=== PATIENT | female | born 1945 | race Caucasian/White ===

== ENCOUNTER 2020-12-10 06:58 | Outpatient (REF) | payer MEDICARE, SELFPAY ==
[2020-12-10 11:37] LABS: Alanine Aminotransferase 12 U/L (0-31); Aspartate Amino Transferase 14 U/L (5-31); Estimated Glomerular Filt Rate > 60
[2020-12-10 11:47] LABS: Valproate 24.6 mcg/mL (50.0-100.0)
[2020-12-10 11:58] LABS: Free T4 (Free Thyroxine) 1.02 ng/dL (0.71-1.85)
== END 2020-12-10 06:59 | disposition home or self-care (01) ==
LOC: HO.HMGCLDS 06:58
PROVIDERS: PCP Family Medicine; Visit Provider Family Medicine
DX: E03.9 Hypothyroidism, unspecified (principal); Z79.899 Other long term (current) drug therapy
CPT/HCPCS: 36415; 80164; 82565; 84439; 84450; 84460

== ENCOUNTER 2022-01-16 14:07 | Emergency (ER) | payer MEDICARE, SELFPAY ==
--- NOTE | ~2022-01-16 | CT_ITS ---
EXAMINATION: CT HEAD WITHOUT CONTRAST CLINICAL INFORMATION: Difficulty ambulating COMPARISON: None TECHNIQUE: Contiguous axial imaging was performed from the skull base to vertex without intravenous administration of contrast. Coronal and sagittal reformatted images are performed at CT scanner This CT examination was performed using dose optimization techniques as appropriate, variously including the following: *Automated exposure control *Adjustment of mA and/or kV according to patient size (this includes techniques or standardized protocols for targeted exams where dose is matched to indication/reason for exam; i.e. extremities or head) *Use of iterative reconstruction technique DLP: 674 mGy-cm FINDINGS: There is no evidence of acute intracranial hemorrhage or territorial infarction. No abnormal mass effect or midline shift is seen. Alvarez to white matter differentiation is well preserved. No extra-axial fluid collections are identified. There is generalized global volume loss. There is moderate prominence of the ventricles and the sulci . There is moderate hypodensity of the periventricular white matter due to chronic small vessel ischemic disease. There are vascular calcifications of the internal carotid arteries bilaterally. The osseous structures and soft tissues are normal. Small retention cyst or polyp at the inferior right maxillary sinus. Mastoid air cells and middle ear cavities are normally aerated. CT/CT head/brain wo con IMPRESSION: No acute intracranial pathology.
--- NOTE | ~2022-01-16 | XR_ITS ---
EXAMINATION: XR CHEST CLINICAL INFORMATION: Shakiness COMPARISON: Chest x-ray 08/15/2019 TECHNIQUE: Frontal portable view of the chest was obtained. 2:40 PM FINDINGS: Lungs are clear. No pulmonary vascular congestion. There is no pleural effusion. The heart size is normal. The cardiac and mediastinal contours are normal. There are calcifications of the thoracic aorta. There are multilevel degenerative changes of dorsal spine. XR/XR chest 1V IMPRESSION: Unremarkable examination.
--- NOTE | 2022-01-16 14:28 | ECG_ITS ---
Test Reason : ALTERED MENTAL STATUS Blood Pressure : / mmHG Vent. Rate : 075 BPM Atrial Rate : 000 BPM P-R Int : 000 ms QRS Dur : 080 ms QT Int : 374 ms P-R-T Axes : 000 055 077 degrees QTc Int : 417 ms Normal sinus rhythm Nonspecific T wave abnormality Abnormal ECG When compared with ECG of 14-JUL-2007 14:42, Nonspecific T wave abnormality now evident in Inferior leads Nonspecific T wave abnormality now evident in Lateral leads Referred By: Tawanna Benjamin Electronically Signed By:Elton Mcfarlane
[2022-01-16 14:40] VITALS: BP 153/71; PULSE 65; RESP 18; TEMP 36.6; O2SAT 99; BMI 23.9
--- NOTE | 2022-01-16 14:43 | ED.GENADULT ---
HPI - General Adult General Chief complaint: General Medical <LAY Shore Last Filed: 01/16/22 18:48> Stated complaint: tremors <LAY Shore Last Filed: 01/16/22 18:48> Time Seen by Provider: 01/16/22 14:14 <LAY Shore Last Filed: 01/16/22 18:48> Source: patient and EMS <LAY Shore Last Filed: 01/16/22 18:48> Mode of arrival: EMS <LAY Shore Last Filed: 01/16/22 18:48> History of Present Illness HPI narrative: 76-year-old female with a past medical history of dementia with behavioral disturbance, nonverbal, GERD, hypothyroid, OA, presenting to ED via EMS from a [facility] assisted living for shakiness and inability to ambulate at baseline. Per staff patient has had decreased p.o. intake. Per EMS patient ambulated to their truck. Staff also reports Norovirus outbreak at facility, & multiple other patients with similar symptoms. Facility denies reported fever, vomiting or diarrhea. Was tested for COVID-19 [employer] and negative. Deny reported falls <LAY Shore Last Filed: 01/16/22 18:48> Onset (ago): day(s) <LAY Shore Last Filed: 01/16/22 18:48> Related Data Allergies/adverse reactions: Allergies Allergy/AdvReac Type Severity Reaction Status Date / Time penicillin V Allergy Unknown Verified 06/15/17 00:00 PCN Allergy Unknown mouth Uncoded 05/24/13 00:00 swelling/sores <LAY Shore Last Filed: 01/16/22 18:48> Review of Systems Review of Systems: ROS unobtainable due to patient's baseline dementia/nonverbal <LAY Shore Last Filed: 01/16/22 18:48> Yes Unobtainable due to mental condition <LAY Shore Last Filed: 01/16/22 18:48> [facility] Past Medical History Attestation statement: The following information was validated with the patient. <LAY Shore Last Filed: 01/16/22 18:48> Medical History: Medical History Dementia with behavioral disturbance GERD (gastroesophageal reflux disease) Hypothyroid Osteoarthritis <LAY Shore - Last Filed: 01/16/22 18:48> Social History Social History: Social History Advance Directives: No <LAY Shore - Last Filed: 01/16/22 18:48> Physical Exam ED Vital Signs: Vital Signs - 24 hr 01/16/22 14:40 01/16/22 16:00 01/16/22 17:21 Temperature 97.8 F 98.0 F Pulse Rate 65 68 Respiratory Rate 18 18 18 Blood Pressure 153/71 H 151/76 H Pulse Oximetry 99 99 01/16/22 20:00 Temperature Pulse Rate Respiratory Rate 18 Blood Pressure 145/75 H Pulse Oximetry BMI result Body Mass Index 23.9 <LAY Shore Last Filed: 01/16/22 18:48> Vital Signs - 24 hr 01/16/22 14:40 01/16/22 16:00 01/16/22 17:21 Temperature 97.8 F 98.0 F Pulse Rate 65 68 Respiratory Rate 18 18 18 Blood Pressure 153/71 H 151/76 H Pulse Oximetry 99 99 01/16/22 20:00 Temperature Pulse Rate Respiratory Rate 18 Blood Pressure 145/75 H Pulse Oximetry BMI result Body Mass Index 23.9 <LAY Zeng - Last Filed: 01/16/22 22:42> Const Other: Tearful, combative <LAY Shore - Last Filed: 01/16/22 18:48> General: no acute distress <LAY Shore Last Filed: 01/16/22 18:48> Limitations: behavioral limitations and other limitations (Dementia/baseline nonverbal) <LAY Shore Last Filed: 01/16/22 18:48> HENMT Head: Yes normal to inspection, Yes normocephalic and Yes atraumatic <LAY Shore Last Filed: 01/16/22 18:48> Ears: hearing grossly normal bilaterally <Tawanna Wadet, PA Last Filed: 01/16/22 18:48> General nose exam: Normal external nose present <Tawanna NinaLAY leo - Last Filed: 01/16/22 18:48> Face and sinus: Yes normal facial exam <Tawanna Ninafelipa [facility] Last Filed: 01/16/22 18:48> Eyes General: appearance normal, both eyes and all related structures <Tawanna Ninafelipa [facility] Last Filed: 01/16/22 18:48> Pupils: Equal, round and reactive pupils present <Tawanna Ninafelipa [facility] Last Filed: 01/16/22 18:48> EOM: EOMs intact bilaterally <Tawanna Ninafelipa [place] - Last Filed: 01/16/22 18:48> Neck Neck: Yes normal visual inspection and Yes no meningeal signs <Tawanna Ninafelipa [facility] Last Filed: 01/16/22 18:48> Resp Effort & Inspection: normal respiratory effort and no respiratory distress <Tawanna Ninafelipa [place] - Last Filed: 01/16/22 18:48> Auscultation: clear to auscultation bilaterally, no rales, no rhonchi and no wheezes <Tawanna Benjamin [place] - Last Filed: 01/16/22 18:48> Cardio Rate: regular rate <Tawanna Ninafelipa [facility] Last Filed: 01/16/22 18:48> Heart sounds: S1 normal heart sound present and S2 normal heart sound present <Tawanna Benjamin [place] - Last Filed: 01/16/22 18:48> GI Inspection: Yes normal to inspection <Tawanna Benjamin [facility] Last Filed: 01/16/22 18:48> Palpation (GI): Soft to palpation, nontender, no guarding and not rigid <Tawanna Benjamin [place] - Last Filed: 01/16/22 18:48> Skin Rashes: no rashes <Tawanna Benjamin [place] - Last Filed: 01/16/22 18:48> Wounds: no wounds <Tawanna Benjamin [facility] Last Filed: 01/16/22 18:48> Neuro Other: Does not follow commands, + shaky/tremulous on exam <LAY Shore - Last Filed: 01/16/22 18:48> General: tone normal, no meningeal signs and no focal motor deficits <LAY Shore Last Filed: 01/16/22 18:48> Cranial nerves: Yes Equal, round and reactive pupils present <LAY Shore Last Filed: 01/16/22 18:48> Extrem General: Yes normal to inspection <LAY Shore Last Filed: 01/16/22 18:48> Course Course Course Narrative: -patient's MOLST is DNR/DNI and no artificial nutrition or no artificial hydration, called and spoke to patient's daughter who is agreeable to IV hydration -1546--chronic leukopenia. H&H stable. COVID-19/influenza negative -1630--patient very combative, kicking and punching at staff. IV Benadryl ordered for safety of patient and staff -labs otherwise unremarkable XR chest 1V IMPRESSION: Unremarkable examination. CT head/brain wo con IMPRESSION: No acute intracranial pathology. -1810--patient without appreciable tremors when comfortable, becomes very tremulous when upset/angry. Did ambulate safely/steadily in the emergency department. Need to rule out UTI by straight catheterization, will give IM Zyprexa prior to straight cath for safety of staff -1900--ED care transferred to [facility] pending UA and anticipated DC back to assisted living <LAY Shore Last Filed: 01/16/22 18:48> Reevaluation(s) Reevaluation #1: Urine negative for infection. Patiet calm and cooperative at this time. Plan dc back to assisted living. Due to patient's history and physical exam it is likely that this is progression of dementia. <LAY Zeng Last Filed: 01/16/22 22:42> Time: 21:35 <LAY Zeng Last Filed: 01/16/22 22:42> Reevaluation #2: Spoke to Shruthi the nursing assistant at patient's assisted living facility who tells me that patient is altered at baseline. It was reported to her that patient was unable to ambulate however here in the department patient has been ambulating with a steady gait. She tells me that the ambulance can ring the buzzer once they arrive at the facility so they can get in. She also notes that there has 247 staff members they are watching patient. I told her patient should return with new or worsening symptoms. But at this time her workup was negative. <LAY Zeng - Last Filed: 01/16/22 22:42> Time: 22:42 <LAY Zeng - Last Filed: 01/16/22 22:42> Medical Decision Making MDM Narrative Medical decision making narrative: 76-year-old female with a past medical history of dementia with behavioral disturbance, nonverbal, GERD, hypothyroid, OA, presenting to ED via EMS from a [facility] assisted living for shakiness and inability to ambulate at baseline. On exam vital signs stable, NAD/nontoxic, nonverbal at baseline, not following commands, appreciable shakiness/tremulous on exam. Concern for viral illness including norovirus vs COVID-19/influenza vs metabolic/infectious etiologies. Lower concern for CVA Plan: EKG, labs, UA, CXR, head CT, IVF, re-evaluate <LAY Shore - Last Filed: 01/16/22 18:48> Medical Records Medical records reviewed: Yes I reviewed the patient's medical records. <LAY Shore - Last Filed: 01/16/22 18:48> Lab Data Lab results reviewed: Yes I reviewed the patient's lab results. <LAY Shore - Last Filed: 01/16/22 18:48> Result diagrams: : 01/16/22 15:25 01/16/22 15:25 <LAY Shore - Last Filed: 01/16/22 18:48> Labs: Lab Results 01/16/22 01/16/22 01/16/22 Range/Units 14:53 14:53 15:25 WBC 4.6 L (4.8-10.8) X10*3/uL RBC 3.71 L (4.20-5.50) X10*6/uL Hgb 11.9 L (12.0-16.0) g/dl Hct 36.3 L (37.0-47.0) % MCV 97.8 (80.0-98.0) fL MCH 32.1 (27.0-33.0) pg MCHC 32.8 (31.0-35.0) g/dl RDW 12.4 (11.0-16.0) % Plt Count 183 (160-400) X10*3/uL MPV 11.4 (9.4-12.3) fL Immature Gran % (Auto) 0.2 (0.0-0.4) % Neut % (Auto) 67.0 (45-73) % Lymph % (Auto) 18.8 L (20-40) % [place] % (Auto) 9.9 (2-11) % Eos % (Auto) 3.5 (0-4) % Baso % (Auto) 0.6 (0-2) % Lymph # (Auto) 0.9 L (1.2-4.9) X10*3/uL [place] # (Auto) 0.5 (0.1-1.2) X10*3/uL Eos # (Auto) 0.2 (0.0-0.4) X10*3/uL Baso # (Auto) 0.0 (0.0-0.2) X10*3/uL Abs Immat Gran (auto) 0.01 (0.00-0.03) X10*3/uL Absolute Neuts (auto) 3.1 (2.0-8.3) x10*3/uL Absolute Nucleated RBC 0.000 (0.0-0.012) X10*3/uL Nucleated RBC % (auto) 0.0 (0.0-0.2) /100WBC Sodium (135-145) mmol/L Potassium (3.3-5.1) mmol/L Chloride (96-108) mmol/L Carbon Dioxide (22-29) mmol/L Anion Gap (12-20) BUN (9-16) mg/dL Creatinine (0.5-1.4) mg/dL Estim Creat Clear Calc Estimated GFR Random Glucose (60-115) mg/dL Lactic Acid (0.5-2.0) mmol/L Calcium (8.4-10.2) mg/dL Magnesium (1.6-2.6) mg/dL Total Bilirubin (0.0-1.0) mg/dL Direct Bilirubin (0.0-0.5) mg/dL AST (5-31) U/L ALT (0-31) U/L Alkaline Phosphatase (39-117) U/L Total Creatine Kinase (26-140) U/L Troponin I High Sens (<3.5-17.0) ng/L Total Protein (6.5-8.0) g/dL Albumin (3.5-5.0) g/dL Lipase (8-78) U/L Urine Color Urine Appearance Urine pH (5.0-8.0) Ur Specific [place] (1.005-1.025) Urine Protein (NEG-TRACE) MG/DL Urine Glucose (UA) (NEG) MG/DL Urine Ketones (NEG) MG/DL Urine Blood (NEG) Urine Nitrite (NEG) Ur Leukocyte Esterase (NEG) Urine RBC (0) /HPF Urine WBC (0-4) /HPF Ur Squamous Epith Cells /LPF Urine Bacteria /LPF COVID-19 (JESUS) Negative (Negative) COVID-19 Clin Com See Note Influenza Type A (KAT) Negative (Negative) Influenza Type B (KAT) Negative (Negative) Influenza A & B Note See Note 01/16/22 01/16/22 01/16/22 Range/Units 15:25 15:25 15:25 WBC (4.8-10.8) X10*3/uL RBC (4.20-5.50) X10*6/uL Hgb (12.0-16.0) g/dl Hct (37.0-47.0) % MCV (80.0-98.0) fL MCH (27.0-33.0) pg MCHC (31.0-35.0) g/dl RDW (11.0-16.0) % Plt Count (160-400) X10*3/uL MPV (9.4-12.3) fL Immature Gran % (Auto) (0.0-0.4) % Neut % (Auto) (45-73) % Lymph % (Auto) (20-40) % [place] % (Auto) (2-11) % Eos % (Auto) (0-4) % Baso % (Auto) (0-2) % Lymph # (Auto) (1.2-4.9) X10*3/uL [place] # (Auto) (0.1-1.2) X10*3/uL Eos # (Auto) (0.0-0.4) X10*3/uL Baso # (Auto) (0.0-0.2) X10*3/uL Abs Immat Gran (auto) (0.00-0.03) X10*3/uL Absolute Neuts (auto) (2.0-8.3) x10*3/uL Absolute Nucleated RBC (0.0-0.012) X10*3/uL Nucleated RBC % (auto) (0.0-0.2) /100WBC Sodium 141 (135-145) mmol/L Potassium 4.3 (3.3-5.1) mmol/L Chloride 103 (96-108) mmol/L Carbon Dioxide 31 H (22-29) mmol/L Anion Gap 11 L (12-20) BUN 13 (9-16) mg/dL Creatinine 0.71 (0.5-1.4) mg/dL Estim Creat Clear Calc 57.3 Estimated GFR > 60 Random Glucose 95 (60-115) mg/dL Lactic Acid 1.5 (0.5-2.0) mmol/L Calcium 10.0 (8.4-10.2) mg/dL Magnesium 2.1 (1.6-2.6) mg/dL Total Bilirubin 0.7 (0.0-1.0) mg/dL Direct Bilirubin 0.3 (0.0-0.5) mg/dL AST 13 (5-31) U/L ALT 11 (0-31) U/L Alkaline Phosphatase 68 (39-117) U/L Total Creatine Kinase 35 (26-140) U/L Troponin I High Sens < 3.5 (<3.5-17.0) ng/L Total Protein 6.6 (6.5-8.0) g/dL Albumin 3.9 (3.5-5.0) g/dL Lipase 16 (8-78) U/L Urine Color Urine Appearance Urine pH (5.0-8.0) Ur Specific [place] (1.005-1.025) Urine Protein (NEG-TRACE) MG/DL Urine Glucose (UA) (NEG) MG/DL Urine Ketones (NEG) MG/DL Urine Blood (NEG) Urine Nitrite (NEG) Ur Leukocyte Esterase (NEG) Urine RBC (0) /HPF Urine WBC (0-4) /HPF Ur Squamous Epith Cells /LPF Urine Bacteria /LPF COVID-19 (JESUS) (Negative) COVID-19 Clin Com Influenza Type A (KAT) (Negative) Influenza Type B (KAT) (Negative) Influenza A & B Note 01/16/22 Range/Units 20:29 WBC (4.8-10.8) X10*3/uL RBC (4.20-5.50) X10*6/uL Hgb (12.0-16.0) g/dl Hct (37.0-47.0) % MCV (80.0-98.0) fL MCH (27.0-33.0) pg MCHC (31.0-35.0) g/dl RDW (11.0-16.0) % Plt Count (160-400) X10*3/uL MPV (9.4-12.3) fL Immature Gran % (Auto) (0.0-0.4) % Neut % (Auto) (45-73) % Lymph % (Auto) (20-40) % [place] % (Auto) (2-11) % Eos % (Auto) (0-4) % Baso % (Auto) (0-2) % Lymph # (Auto) (1.2-4.9) X10*3/uL [place] # (Auto) (0.1-1.2) X10*3/uL Eos # (Auto) (0.0-0.4) X10*3/uL Baso # (Auto) (0.0-0.2) X10*3/uL Abs Immat Gran (auto) (0.00-0.03) X10*3/uL Absolute Neuts (auto) (2.0-8.3) x10*3/uL Absolute Nucleated RBC (0.0-0.012) X10*3/uL Nucleated RBC % (auto) (0.0-0.2) /100WBC Sodium (135-145) mmol/L Potassium (3.3-5.1) mmol/L Chloride (96-108) mmol/L Carbon Dioxide (22-29) mmol/L Anion Gap (12-20) BUN (9-16) mg/dL Creatinine (0.5-1.4) mg/dL Estim Creat Clear Calc Estimated GFR Random Glucose (60-115) mg/dL Lactic Acid (0.5-2.0) mmol/L Calcium (8.4-10.2) mg/dL Magnesium (1.6-2.6) mg/dL Total Bilirubin (0.0-1.0) mg/dL Direct Bilirubin (0.0-0.5) mg/dL AST (5-31) U/L ALT (0-31) U/L Alkaline Phosphatase (39-117) U/L Total Creatine Kinase (26-140) U/L Troponin I High Sens (<3.5-17.0) ng/L Total Protein (6.5-8.0) g/dL Albumin (3.5-5.0) g/dL Lipase (8-78) U/L Urine Color YELLOW Urine Appearance CLEAR Urine pH 7.5 (5.0-8.0) Ur Specific [place] 1.010 (1.005-1.025) Urine Protein NEG (NEG-TRACE) MG/DL Urine Glucose (UA) NEG (NEG) MG/DL Urine Ketones NEG (NEG) MG/DL Urine Blood TRACE (NEG) Urine Nitrite NEG (NEG) Ur Leukocyte Esterase NEG (NEG) Urine RBC 0-2 (0) /HPF Urine WBC 0 (0-4) /HPF Ur Squamous Epith Cells NONE /LPF Urine Bacteria NONE /LPF COVID-19 (JESUS) (Negative) COVID-19 Clin Com Influenza Type A (KAT) (Negative) Influenza Type B (KAT) (Negative) Influenza A & B Note <LAY Shore - Last Filed: 01/16/22 18:48> Lab Results 01/16/22 01/16/22 01/16/22 Range/Units 14:53 14:53 15:25 WBC 4.6 L (4.8-10.8) X10*3/uL RBC 3.71 L (4.20-5.50) X10*6/uL Hgb 11.9 L (12.0-16.0) g/dl Hct 36.3 L (37.0-47.0) % MCV 97.8 (80.0-98.0) fL MCH 32.1 (27.0-33.0) pg MCHC 32.8 (31.0-35.0) g/dl RDW 12.4 (11.0-16.0) % Plt Count 183 (160-400) X10*3/uL MPV 11.4 (9.4-12.3) fL Immature Gran % (Auto) 0.2 (0.0-0.4) % Neut % (Auto) 67.0 (45-73) % Lymph % (Auto) 18.8 L (20-40) % [place] % (Auto) 9.9 (2-11) % Eos % (Auto) 3.5 (0-4) % Baso % (Auto) 0.6 (0-2) % Lymph # (Auto) 0.9 L (1.2-4.9) X10*3/uL [place] # (Auto) 0.5 (0.1-1.2) X10*3/uL Eos # (Auto) 0.2 (0.0-0.4) X10*3/uL Baso # (Auto) 0.0 (0.0-0.2) X10*3/uL Abs Immat Gran (auto) 0.01 (0.00-0.03) X10*3/uL Absolute Neuts (auto) 3.1 (2.0-8.3) x10*3/uL Absolute Nucleated RBC 0.000 (0.0-0.012) X10*3/uL Nucleated RBC % (auto) 0.0 (0.0-0.2) /100WBC Sodium (135-145) mmol/L Potassium (3.3-5.1) mmol/L Chloride (96-108) mmol/L Carbon Dioxide (22-29) mmol/L Anion Gap (12-20) BUN (9-16) mg/dL Creatinine (0.5-1.4) mg/dL Estim Creat Clear Calc Estimated GFR Random Glucose (60-115) mg/dL Lactic Acid (0.5-2.0) mmol/L Calcium (8.4-10.2) mg/dL Magnesium (1.6-2.6) mg/dL Total Bilirubin (0.0-1.0) mg/dL Direct Bilirubin (0.0-0.5) mg/dL AST (5-31) U/L ALT (0-31) U/L Alkaline Phosphatase (39-117) U/L Total Creatine Kinase (26-140) U/L Troponin I High Sens (<3.5-17.0) ng/L Total Protein (6.5-8.0) g/dL Albumin (3.5-5.0) g/dL Lipase (8-78) U/L Urine Color Urine Appearance Urine pH (5.0-8.0) Ur Specific [place] (1.005-1.025) Urine Protein (NEG-TRACE) MG/DL Urine Glucose (UA) (NEG) MG/DL Urine Ketones (NEG) MG/DL Urine Blood (NEG) Urine Nitrite (NEG) Ur Leukocyte Esterase (NEG) Urine RBC (0) /HPF Urine WBC (0-4) /HPF Ur Squamous Epith Cells /LPF Urine Bacteria /LPF COVID-19 (JESUS) Negative (Negative) COVID-19 Clin Com See Note Influenza Type A (KAT) Negative (Negative) Influenza Type B (KAT) Negative (Negative) Influenza A & B Note See Note 01/16/22 01/16/22 01/16/22 Range/Units 15:25 15:25 15:25 WBC (4.8-10.8) X10*3/uL RBC (4.20-5.50) X10*6/uL Hgb (12.0-16.0) g/dl Hct (37.0-47.0) % MCV (80.0-98.0) fL MCH (27.0-33.0) pg MCHC (31.0-35.0) g/dl RDW (11.0-16.0) % Plt Count (160-400) X10*3/uL MPV (9.4-12.3) fL Immature Gran % (Auto) (0.0-0.4) % Neut % (Auto) (45-73) % Lymph % (Auto) (20-40) % [place] % (Auto) (2-11) % Eos % (Auto) (0-4) % Baso % (Auto) (0-2) % Lymph # (Auto) (1.2-4.9) X10*3/uL [place] # (Auto) (0.1-1.2) X10*3/uL Eos # (Auto) (0.0-0.4) X10*3/uL Baso # (Auto) (0.0-0.2) X10*3/uL Abs Immat Gran (auto) (0.00-0.03) X10*3/uL Absolute Neuts (auto) (2.0-8.3) x10*3/uL Absolute Nucleated RBC (0.0-0.012) X10*3/uL Nucleated RBC % (auto) (0.0-0.2) /100WBC Sodium 141 (135-145) mmol/L Potassium 4.3 (3.3-5.1) mmol/L Chloride 103 (96-108) mmol/L Carbon Dioxide 31 H (22-29) mmol/L Anion Gap 11 L (12-20) BUN 13 (9-16) mg/dL Creatinine 0.71 (0.5-1.4) mg/dL Estim Creat Clear Calc 57.3 Estimated GFR > 60 Random Glucose 95 (60-115) mg/dL Lactic Acid 1.5 (0.5-2.0) mmol/L Calcium 10.0 (8.4-10.2) mg/dL Magnesium 2.1 (1.6-2.6) mg/dL Total Bilirubin 0.7 (0.0-1.0) mg/dL Direct Bilirubin 0.3 (0.0-0.5) mg/dL AST 13 (5-31) U/L ALT 11 (0-31) U/L Alkaline Phosphatase 68 (39-117) U/L Total Creatine Kinase 35 (26-140) U/L Troponin I High Sens < 3.5 (<3.5-17.0) ng/L Total Protein 6.6 (6.5-8.0) g/dL Albumin 3.9 (3.5-5.0) g/dL Lipase 16 (8-78) U/L Urine Color Urine Appearance Urine pH (5.0-8.0) Ur Specific [place] (1.005-1.025) Urine Protein (NEG-TRACE) MG/DL Urine Glucose (UA) (NEG) MG/DL Urine Ketones (NEG) MG/DL Urine Blood (NEG) Urine Nitrite (NEG) Ur Leukocyte Esterase (NEG) Urine RBC (0) /HPF Urine WBC (0-4) /HPF Ur Squamous Epith Cells /LPF Urine Bacteria /LPF COVID-19 (JESUS) (Negative) COVID-19 Clin Com Influenza Type A (KAT) (Negative) Influenza Type B (KAT) (Negative) Influenza A & B Note 01/16/22 Range/Units 20:29 WBC (4.8-10.8) X10*3/uL RBC (4.20-5.50) X10*6/uL Hgb (12.0-16.0) g/dl Hct (37.0-47.0) % MCV (80.0-98.0) fL MCH (27.0-33.0) pg MCHC (31.0-35.0) g/dl RDW (11.0-16.0) % Plt Count (160-400) X10*3/uL MPV (9.4-12.3) fL Immature Gran % (Auto) (0.0-0.4) % Neut % (Auto) (45-73) % Lymph % (Auto) (20-40) % [place] % (Auto) (2-11) % Eos % (Auto) (0-4) % Baso % (Auto) (0-2) % Lymph # (Auto) (1.2-4.9) X10*3/uL [place] # (Auto) (0.1-1.2) X10*3/uL Eos # (Auto) (0.0-0.4) X10*3/uL Baso # (Auto) (0.0-0.2) X10*3/uL Abs Immat Gran (auto) (0.00-0.03) X10*3/uL Absolute Neuts (auto) (2.0-8.3) x10*3/uL Absolute Nucleated RBC (0.0-0.012) X10*3/uL Nucleated RBC % (auto) (0.0-0.2) /100WBC Sodium (135-145) mmol/L Potassium (3.3-5.1) mmol/L Chloride (96-108) mmol/L Carbon Dioxide (22-29) mmol/L Anion Gap (12-20) BUN (9-16) mg/dL Creatinine (0.5-1.4) mg/dL Estim Creat Clear Calc Estimated GFR Random Glucose (60-115) mg/dL Lactic Acid (0.5-2.0) mmol/L Calcium (8.4-10.2) mg/dL Magnesium (1.6-2.6) mg/dL Total Bilirubin (0.0-1.0) mg/dL Direct Bilirubin (0.0-0.5) mg/dL AST (5-31) U/L ALT (0-31) U/L Alkaline Phosphatase (39-117) U/L Total Creatine Kinase (26-140) U/L Troponin I High Sens (<3.5-17.0) ng/L Total Protein (6.5-8.0) g/dL Albumin (3.5-5.0) g/dL Lipase (8-78) U/L Urine Color YELLOW Urine Appearance CLEAR Urine pH 7.5 (5.0-8.0) Ur Specific [place] 1.010 (1.005-1.025) Urine Protein NEG (NEG-TRACE) MG/DL Urine Glucose (UA) NEG (NEG) MG/DL Urine Ketones NEG (NEG) MG/DL Urine Blood TRACE (NEG) Urine Nitrite NEG (NEG) Ur Leukocyte Esterase NEG (NEG) Urine RBC 0-2 (0) /HPF Urine WBC 0 (0-4) /HPF Ur Squamous Epith Cells NONE /LPF Urine Bacteria NONE /LPF COVID-19 (JESUS) (Negative) COVID-19 Clin Com Influenza Type A (KAT) (Negative) Influenza Type B (KAT) (Negative) Influenza A & B Note <LAY Zeng - Last Filed: 01/16/22 22:42> Discharge Plan Discharge Clinical Impression: Tremulousness, Dementia <LAY Shore - Last Filed: 01/16/22 18:48> Patient Disposition: Xfer SNF <LAY Shore Last Filed: 01/16/22 18:48> Transfer Details: Transfer back [facility] <LAY Shore Last Filed: 01/16/22 18:48> Transfer back [facility] <LAY Zeng Last Filed: 01/16/22 22:42> Instructions: Dementia (ED) <LAY Shore - Last Filed: 01/16/22 18:48> Additional Instructions: Your blood work and imaging studies were unremarkable today in the ED. Please continue home prescribed medications. Please stay hydrated. You likely have a viral illness. If symptoms persist or worsen, he develop weakness, you are unable to ambulate, are exceedingly tremulous please return to the emergency department <LAY Shore - Last Filed: 01/16/22 18:48> Referrals: Physician,Unknown J [Primary Care Provider] - <LAY Shore - Last Filed: 01/16/22 18:48>
[2022-01-16] MEDS: 0.9 % Sodium Chloride 1,000 ML 999 ML IV (15:25)
[2022-01-16 15:29] LABS: COVID-19 Test Negative (Negative)
[2022-01-16 15:30] LABS: Influenza A Negative (Negative); Influenza B2 Negative (Negative)
[2022-01-16 15:34] LABS: MANUAL DIFF FLAG NO
[2022-01-16 15:36] LABS: Basophils Percent Auto 0.6 % (0-2); Eosinophils Absolute Auto 0.2 X10*3/uL (0.0-0.4); Eosinophils Percent Auto 3.5 % (0-4); Hematocrit 36.3 % (37.0-47.0); Hemoglobin 11.9 g/dl (12.0-16.0); Imm Gran Abs Auto 0.01 X10*3/uL (0.00-0.03); Imm Gran Pct Auto 0.2 % (0.0-0.4); Lymphocytes Absolute Auto 0.9 X10*3/uL (1.2-4.9); Lymphocytes Percent Auto 18.8 % (20-40); Mean Corpuscular HGB Conc 32.8 g/dl (31.0-35.0); Mean Corpuscular Hemoglobin 32.1 pg (27.0-33.0); Mean Corpuscular Volume 97.8 fL (80.0-98.0); Mean Platelet Volume 11.4 fL (9.4-12.3); Monocytes Absolute Auto 0.5 X10*3/uL (0.1-1.2); Monocytes Percent Auto 9.9 % (2-11); Neutrophils Absolute Auto 3.1 x10*3/uL (2.0-8.3); Platelet Count 183 X10*3/uL (160-400); Red Blood Count 3.71 X10*6/uL (4.20-5.50); Red Cell Distribution Width 12.4 % (11.0-16.0); White Blood Count 4.6 X10*3/uL (4.8-10.8)
[2022-01-16 15:52] LABS: Lactic Acid 1.5 mmol/L (0.5-2.0)
[2022-01-16 15:54] LABS: Alanine Aminotransferase 11 U/L (0-31); Albumin Level 3.9 g/dL (3.5-5.0); Alkaline Phosphatase 68 U/L (39-117); Anion Gap 11 (12-20); Aspartate Amino Transferase 13 U/L (5-31); Bilirubin Direct 0.3 mg/dL (0.0-0.5); Bilirubin Total 0.7 mg/dL (0.0-1.0); Blood Urea Nitrogen 13 mg/dL (9-16); Carbon Dioxide 31 mmol/L (22-29); Chloride 103 mmol/L (96-108); Creatinine Clr Calc Pharmacy 57.3; Estimated Glomerular Filt Rate > 60; Glucose Random 95 mg/dL (60-115); Lipase 16 U/L (8-78); Magnesium 2.1 mg/dL (1.6-2.6); Potassium 4.3 mmol/L (3.3-5.1); Sodium 141 mmol/L (135-145); Total Protein 6.6 g/dL (6.5-8.0)
[2022-01-16 16:00] VITALS: BP 151/76; PULSE 68; RESP 18; TEMP 36.7; O2SAT 99
[2022-01-16 16:02] LABS: Troponin-I High Sensitivity < 3.5 ng/L (<3.5-17.0)
--- NOTE | 2022-01-16 16:37 | PC.NURSE ---
iv inserted, labs drawn, vss, pt attempting to ambulate on her own and became agitated, pt moved to room 4 to have a better visual of her, red socks and wall falling star placed, pt medicated per order, will continue to monitor.
[2022-01-16] MEDS: diphenhydrAMINE HCL 50 MG/ML VIAL IVPUSH (16:58)
--- NOTE | 2022-01-16 16:58 | PC.NURSE ---
patient awake/confused, iv needed to be inserted this nurse premedicated the patient with benadryl to assist with care.
--- NOTE | 2022-01-16 16:58 | PC.NURSE ---
pharmacy called and had to fix the benadryl order for the patient, the patient was administered the benadryl and the vial thrown out.
[2022-01-16 17:21] VITALS: RESP 18
[2022-01-16] MEDS: OLANZapine 10 MG VIAL 5 MG IM ×2 (18:25→19:25)
--- NOTE | 2022-01-16 18:39 | PC.NURSE ---
patients has become increasingly agitated not allowing staff to perform vitals or take her pants/shoes off- patient was attempting to hit and kick staff, provider was notified and zyprexa was ordered to assist help the patient calm to allow staff to perform vitals, ekg and straight cath. prior to administration of the zyprexa per the daughters request, this nurse and the patients daughter attempted to get the patient oob to the commode to obtain the urine, the patient became very combative and agitated, patient was assisted back into bed with 3 staff members and pt was administered zyprexa- this nurse attempted to obtain vitals and was unable to do so at this time.
[2022-01-16 20:00] VITALS: BP 145/75; RESP 18
--- NOTE | 2022-01-16 20:08 | PC.NURSE ---
patient was again medicated with zyprexa as ordered, she continues to be agitated and hitting, this nurse was able to get a bp cuff on her briefly to obtain a bp, unable to obtain the rest of the vitals, will continue to monitor
--- NOTE | 2022-01-16 20:25 | PC.NURSE ---
with the assist of 4 techs holding limbs patient was straight cath'd and ekg was able to be performed
[2022-01-16 20:40] LABS: Appearance Urine CLEAR; Color Urine YELLOW; Glucose Urine UA NEG (NEG); Leukocyte Esterase Urine NEG (NEG); Nitrite Urine NEG (NEG); PH 7.5 (5.0-8.0); UACC Culture Trigger NO; Urine Blood TRACE (NEG); Urine Ketones NEG (NEG); Urine Protein NEG (NEG-TRACE)
[2022-01-16 20:46] LABS: RBC Urine 0-2 /HPF (0); WBC Urine 0 /HPF (0-4)
--- NOTE | 2022-01-16 21:47 | PC.NURSE ---
this nurse called and updated the daughter on the patients status and that we will d/c the patient back to [facility]. this nurse attempted to call [facility] multiple times with no answer, a message was left on an answering machine with our number for them to return call, will update provider.
--- NOTE | 2022-01-17 04:26 | PC.NURSE ---
Pt left the ED at this time en route to SNF. Nursing report was called to SNF prior to me assuming care of this patient.
== END 2022-01-17 04:27 | disposition skilled nursing facility (03) ==
PROVIDERS: Physician Assistant; Emergency Provider Emergency Medicine
DX: R25.1 Tremor, unspecified (principal); F03.91 Unspecified dementia, unspecified severity, with behavioral disturbance; Z20.822 Contact with and (suspected) exposure to COVID-19; Z79.899 Other long term (current) drug therapy
CPT/HCPCS: 36415; 70450; 71045; 80048; 80076; 81001; 82550; 83605; 83690; 83735; 84484; 85025; 87040; 87502; 87635; 93005; 96361; 96372; 96374; 99285; J1200